=== PATIENT | female | born 1980 | race Caucasian/White ===

== ENCOUNTER 2017-11-15 13:00 | Outpatient (RCR) | payer OTHER, MEDICAID | END 2017-12-10 13:52 | disposition home or self-care (01) | LOC: WSPT 13:00 | DX: M51.26 Other intervertebral disc displacement, lumbar region (principal); M54.16 Radiculopathy, lumbar region; Z98.890 Other specified postprocedural states; Z79.899 Other long term (current) drug therapy ==